=== PATIENT | female | born 1990 | race Asian ===

== ENCOUNTER 2022-03-09 02:48 | Inpatient (IN) | payer OTHER ==
[~2022-03-09] VITALS: Ht 162.6 cm; Wt 80.5 kg
[2022-03-09] VITALS (64 sets, daily range): BP systolic 86–180; BP diastolic 54–111
[2022-03-09] MEDS ORDERED: PRENMIS3 PO (03:16)
[2022-03-09] MEDS ORDERED: ACET325C5 PO (03:16)
[2022-03-09] MEDS ORDERED: HOME MED LIST COMPLETE! XX SCH (03:20)
[2022-03-09] MEDS ORDERED: LACTATED RINGER'S 1000 ML IV STA (03:35)
[2022-03-09] MEDS ORDERED: OXYTOCIN DRIP 30 UNITS in IV 1 EA IV PRN ×4 (03:35)
[2022-03-09] MEDS ORDERED: METHYLERGONOVINE MALEATE 0.2 MG/ML VIAL (J2210) IM PRN (03:35)
[2022-03-09] MEDS ORDERED: LR 1,000 ML IV SCH (03:35)
[2022-03-09] MEDS ORDERED: LIDOCAINE 1% MDV 20ML VIAL INFIL PRN (03:35)
[2022-03-09] MEDS ORDERED: TRANEXAMIC ACID INJection 1,000 MG in NS 100 ML IV PRN (03:35)
[2022-03-09 03:54] LABS: HEMATOCRIT 35.6 % (36.0-47.0); HEMOGLOBIN 11.3 g/dl (12.0-15.5); MEAN CORPUSCULAR HEMOGLOBIN 26.9 pg (27.0-33.0); MEAN CORPUSCULAR HGB CONC 31.7 g/dl (32.0-36.5); MEAN CORPUSCULAR VOLUME 84.8 fl (80.0-96.0); PLATELET COUNT, AUTOMATED 228 10^3/uL (150-450); WHITE BLOOD COUNT 8.5 10^3/uL (4.0-10.0)
[2022-03-09] MEDS ORDERED: diphenhydrAMINE 50MG/ML VIAL IV PRN (04:25)
[2022-03-09] MEDS ORDERED: NALOXONE INJ 0.4MG/1ML VIAL IV PRN (04:25)
[2022-03-09] MEDS ORDERED: ONDANSETRON 4MG 2ML VIAL IV PRN (04:25)
[2022-03-09] MEDS ORDERED: LR 500 ML IV PRN (04:25)
[2022-03-09] MEDS ORDERED: EPIDURAL/PCA KEYS XX PRN (04:25)
[2022-03-09] MEDS: FENTANYL/ROPIVACAINE/NACL BAG 100 ML EPIDURAL SCH ×2 (05:14→15:23)
[2022-03-09] MEDS: ePHEDrine SULFATE 25 MG/5 ML(5MG/ML) SYRINGE IVP PRN ×3 (05:36→05:53)
[2022-03-09] MEDS ORDERED: OXYTOCIN DRIP 30 UNITS in IV 1 EA IV SCH ×5 (09:05→18:15)
[2022-03-09] MEDS: LR 1,000 ML IV SCH ×3 (10:05→18:15)
[2022-03-09] MEDS ORDERED: IBUPROFEN 600MG TAB PO PRN (18:15)
[2022-03-09] MEDS ORDERED: IBUPROFEN 800 MG TAB PO PRN (18:15)
[2022-03-09] MEDS ORDERED: RHOGAM 300 MCG (1500 IU) INJ (J2790) IM SCH (18:15)
[2022-03-09] MEDS ORDERED: DOCUSATE SODIUM 100MG CAPSULE PO PRN (18:15)
[2022-03-09] MEDS ORDERED: METHYLERGONOVINE MALEATE 0.2 MG TAB PO PRN (18:15)
[2022-03-09] MEDS ORDERED: DIBUCAINE 1% OINTMENT 30GM TOP PRN (18:15)
[2022-03-09] MEDS ORDERED: ACETAMINOPHEN TAB 650MG DOSE (2X325MG) PO PRN (18:15)
[2022-03-09] MEDS ORDERED: ACETAMINOPHEN 500 MG TAB PO PRN (18:15)
[2022-03-10] MEDS: FENTANYL/ROPIVACAINE/NACL BAG 100 ML EPIDURAL SCH ×2 (00:25→10:25)
[2022-03-10] MEDS: LR 1,000 ML IV SCH ×6 (01:05→17:39)
[2022-03-10 05:48] VITALS: BP 109/59
[2022-03-10] MEDS: PRENATAL VITAMINS CHEWABLE TABLET PO SCH (09:35)
[2022-03-10 09:54] VITALS: BP 106/66
[2022-03-10 11:16] LABS: URIC ACID 6.1 MG/DL (3.1-7.8)
[2022-03-10 11:19] LABS: ALKALINE PHOSPHATASE 139 U/L (46-116); ALT/SGPT 10 U/L (7.0-40); AST/SGOT 26 U/L (<34); BILIRUBIN,TOTAL 0.6 MG/DL (0.3-1.2); BLOOD UREA NITROGEN 10 MG/DL (9-23); CALCIUM LEVEL 8.7 MG/DL (8.5-10.1); CARBON DIOXIDE LEVEL 24 MMOL/L (20-31); CHLORIDE LEVEL 103 MMOL/L (98-107); CREATININE FOR GFR 0.63 MG/DL (0.55-1.30); GLOMERULAR FILTRATION RATE > 60.0 (>60); GLUCOSE, FASTING 110 MG/DL (60-100); LDH LACTATE DEHYDROGENASE 168 U/L (120-246); POTASSIUM SERUM 3.7 MMOL/L (3.5-5.1); SODIUM LEVEL 135 MMOL/L (136-145); TOTAL PROTEIN 5.4 G/DL (5.7-8.2)
[2022-03-10 18:09] VITALS: BP 110/74
[2022-03-11 06:00] VITALS: BP 109/71
[2022-03-11] MEDS ORDERED: INFLUENZA QUADRIVALENT PF VACCINE 0.5ML SYRINGE IM.IMMUN ONE (09:00)
[2022-03-11] MEDS ORDERED: MEASLES,MUMPS,RUBELLA VACCINE INJ (MMR-II) (90707) SC.IMMUN ONE (09:00)
[2022-03-11] MEDS ORDERED: IBUP-1022 PO (09:01)
[2022-03-11] MEDS ORDERED: ACET-683 PO (09:01)
[2022-03-11] MEDS: PRENATAL VITAMINS CHEWABLE TABLET PO SCH (09:52)
== END 2022-03-11 11:50 | disposition home or self-care (01) | DRG 807 ==
LOC: M LDO 02:48 → M LDI 03:30 → M OBS 21:30
PROVIDERS: ADMIT Obstetrics & Gynecology; ATTEND Obstetrics & Gynecology
PROC: 10E0XZZ Delivery of Products of Conception, External Approach (ICD-10-PCS; principal; 2022-03-09)
PROC: 0HQ9XZZ Repair Perineum Skin, External Approach (ICD-10-PCS; 2022-03-09)
DX: O69.81X0 Labor and delivery complicated by cord around neck, without compression, not applicable or unspecified (principal); Z37.0 Single live birth; Z3A.39 39 weeks gestation of pregnancy; O70.0 First degree perineal laceration during delivery